=== PATIENT | male | born 1945 | race Caucasian/White ===

== ENCOUNTER 2022-02-14 17:07 | Inpatient (IN) | payer MEDICARE ==
[~2022-02-14] VITALS: Ht 188 cm; Wt 89.4 kg
[2022-02-14 17:34] VITALS: BP 117/69; PULSE 70; TEMP 97.9
[2022-02-14] MEDS ORDERED: ATIVAN 1MG T1 MG/TAB PO (17:53)
[2022-02-14] MEDS ORDERED: NORVASC 10MG10 MG PO (17:56)
[2022-02-14] MEDS ORDERED: TOPROL XL 25MG25 MG PO (17:57)
[2022-02-14] MEDS ORDERED: ARICEPT10 MG PO (17:57)
[2022-02-14] MEDS ORDERED: NAMENDA 10MG TA10 MG PO (17:58)
--- NOTE | 2022-02-14 18:01 | NUR ---
PT TO ROOM 325 PER EMS, REPORT FROM [facility]. PT IS CONFUSED. PLACED CABRERA CATHETER ON ADMISSION. PT WAS INCONTINENT. RIGH HIP FX,
[2022-02-14 20:07] VITALS: BP 120/67; PULSE 63; TEMP 98.5
[2022-02-15] VITALS (12 sets, daily range): BP systolic 97–120; BP diastolic 54–86; PULSE 41–93; TEMP 97.6–99.3
[2022-02-15 05:16] LABS: BASO % 0.5 % (0.0-2.0); EOS # 0.1 K/mm3 (0.0-0.7); GRAN # 4.9 K/mm3 (1.4-6.5); GRAN % 76.1 % (42.2-75.2); HEMOGLOBIN 12.1 g/dl (13.5-18.0); LYMPH # 0.8 K/mm3 (1.2-3.4); LYMPH % 11.7 % (20.0-51.0); MEAN CELL VOLUME 94 fl (80.0-100.0); MEAN CORPUSCULAR HEMOGLOBIN 32 pg (27-31); MEAN CORPUSCULAR HGB CONC 34 g/dl (33.0-37.0); MEAN PLATELET VOLUME 10.2 fl (7.4-10.4); MONO # 0.6 K/mm3 (0.1-0.6); MONO % 9.1 % (1.7-9.3); PLATELET COUNT 145 K/mm3 (130-400); RED BLOOD COUNT 3.82 M/mm3 (4.20-5.60); REDCELL DISTRIBUTION WIDTH-CV 12.6 % (11.5-14.5)
[2022-02-15 05:33] LABS: CALCIUM 8.2 mg/dL (8.4-10.2); CREATININE, serum 1.83 mg/dL (0.72-1.25); MAGNESIUM 1.9 mg/dL (1.6-2.6); POTASSIUM 3.6 mmol/L (3.5-4.5)
--- NOTE | 2022-02-15 05:35 | NUR ---
Patient pulled out his IV at approximately 0155. A new IV was inserted to his left forearm without difficulty. Overall the patient has had an uneventful evening. Patient has been pleasant with staff, no complaints of pain and able to take oral medications withouth difficulty. Patient is NPO as of midnight. Full body assessment and vital signs completed and WNL. No other complaints at this time. Call light within reach.
--- NOTE | 2022-02-15 10:58 | NUR ---
Social Work student called patient's to complete the intake as patient is a poor historian with dementia. Patient's , Mine(ph#[phone]), states that the patient resides at [facility]. Patient's states that he is still seeing Dr. Anitha Lawrence for primary care, and that he receives his medications through [facility]. Patient's states that he utilizes a wheelchair. Patient's also states that he needs assistance with his ADL's. Mine states that he has filled out a DPOA-HC, and it is in their safety lock box at home. SW inquired who his primary agent is, and Mine stated that it was her, who is his legal next of kin. When asked if the patient's is comfortable with the patient discharging back to [facility], she stated, "I have no problems with that." *Discharge plan: [facility]*
--- NOTE | 2022-02-15 11:05 | NUR ---
NOTIFIED AND HARLEY VELASQUEZ THAT PT HAS BEEN MEDICALLY OPTIMIZED FOR SURGERY. PT TO REMAIN NPO AND SURGERY LATER THIS PM.
--- NOTE | 2022-02-15 11:42 | NUR ---
First visit from the data warehouse developer. No needs right now.
--- NOTE | 2022-02-15 12:52 | NUR ---
Social Work student called [facility] to confirm that patient resides at this facility in the SNF unit. Eder Vera confirmed this. SW student faxed uodates to [facility].
--- NOTE | 2022-02-15 13:56 | NUR ---
PT TO SURGERY PER BED WITH PAIGE AT THIS TIME.
[2022-02-16] VITALS (7 sets, daily range): BP systolic 101–116; BP diastolic 53–87; PULSE 51–79; TEMP 97.3–97.9
[2022-02-16 06:29] LABS: HEMOGLOBIN 11.8 g/dl (13.5-18.0)
[2022-02-16 06:38] LABS: HEMATOCRIT 34.5 % (42.0-52.0)
[2022-02-16 06:47] LABS: CREATININE, serum 1.86 mg/dL (0.72-1.25); POTASSIUM 4.1 mmol/L (3.5-4.5)
--- NOTE | 2022-02-16 09:52 | NUR ---
ASSESSMENT COMPLETE. PT A&O X4. SITTING UP IN CHAIR EATING BREAKFAST. CABRERA IN PLACE, SECURED, AND DEPENDENT TO DRAINAGE. DENIES NAUSEA. DRESSING TO RIGHT HIP CD&I. IV IN LEFT FORARM IS PATENT. CALL LIGHT WITHIN REACH. NO FURTHER NEEDS AT THIS TIME.
--- NOTE | 2022-02-16 12:52 | NUR ---
Social Work student faxed updates to [facility].
--- NOTE | 2022-02-16 21:38 | NUR ---
PT IN BED, HAS EYES CLOSED. AWAKENS EASILY TO NAME. IS ALERT TO SELF. TAKES HS MEDS INCLUDING ES TYLENOL FOR RT HIP PAIN. HAS TOM DRSG TO RT HIP, D/I. HAS IVF TO LFA INFUSING WITHOUT PROBLEM, WILL DC AFTER THIS BAG. HAS YET TO VOID SINCE CABRERA REMOVED, BLADDER SCANNED FOR 280CC. WATER GIVEN. BED ALARM ON FOR SAFETY.
--- NOTE | 2022-02-17 02:34 | NUR ---
PT VOIDS 100CC PER URINAL.
[2022-02-17 04:21] VITALS: BP 102/58; PULSE 56; TEMP 98.1
--- NOTE | 2022-02-17 04:30 | NUR ---
VOIDING WELL PER URINAL WITH HELP. INT TO LFA.
[2022-02-17 06:26] LABS: BASO % 0.3 % (0.0-2.0); EOS # 0.1 K/mm3 (0.0-0.7); EOS % 0.7 % (0.0-4.0); GRAN # 5.4 K/mm3 (1.4-6.5); GRAN % 74.1 % (42.2-75.2); HEMOGLOBIN 10.8 g/dl (13.5-18.0); LYMPH % 13.3 % (20.0-51.0); MEAN CELL VOLUME 95 fl (80.0-100.0); MEAN CORPUSCULAR HEMOGLOBIN 32 pg (27-31); MEAN CORPUSCULAR HGB CONC 33 g/dl (33.0-37.0); MEAN PLATELET VOLUME 10.6 fl (7.4-10.4); MONO # 0.8 K/mm3 (0.1-0.6); PLATELET COUNT 139 K/mm3 (130-400); RED BLOOD COUNT 3.41 M/mm3 (4.20-5.60); REDCELL DISTRIBUTION WIDTH-CV 12.6 % (11.5-14.5)
[2022-02-17 06:40] LABS: HEMATOCRIT 32.3 % (42.0-52.0)
[2022-02-17 06:41] LABS: CALCIUM 8.1 mg/dL (8.4-10.2); CREATININE, serum 1.9 mg/dL (0.72-1.25); POTASSIUM 3.7 mmol/L (3.5-4.5)
[2022-02-17 08:00] VITALS: BP 115/60; PULSE 62; TEMP 97.7
--- NOTE | 2022-02-17 08:00 | NUR ---
PATIENT IS ORIENTED TO PERSON BUT OTHERWISE PLEASANTLY CONFUSED AT BASELINE. PATIENT LIVES IN A NH WHERE HE WILL RETURN FOR SKILLED CARE UPON DISCHARGE. VSS. PATIENT DOES NOT USE THE NUMBERIC SCALE WELL TO COMMUNICATE HIS PAIN, SEE CHARTING. GAVE PRN YULISA, ONE TAB WITH AM MEDS BEFORE AM THERAPY. PATIENT 2 ASSIST TO BEDSIDE CHAIR FOR BREAKFAST. RIGHT HIP DRESSING IS CD&I WITH ICE PACK INPLACE. TEDS TO BLE. SCD'S CURRENTLY OFF. POSITIVE PEDAL PULSES TO BLE. PATIENT IS WEAK, UNSTEADY GAIT AND DOESN'T FOLLOW DIRECTIONS WELL. PT/OT CONSULTED. HIGH FALL RISK. CHAIR ALARM INPLACE. CALL LIGHT IN REACH. DNR STATUS. HEAD TO TOE ASSESSMENT COMPLETE. BREAKFAST TRAY AT BEDSIDE. RIGHT AC IV TO INT. NO OTHER NEEDS AT THIS TIME.
[2022-02-17] MEDS ORDERED: ROXICODONE 55 MG/TAB PO ×2 (11:34)
[2022-02-17] MEDS ORDERED: ATIVAN 1MG T1 MG/TAB PO ×2 (11:34)
--- NOTE | 2022-02-17 11:47 | NUR ---
The clinical team is ready to discharge the patient today. SHAUNNA notified Negra at [facility]. Negra states that their administrator pesticide is stating that due to staffing, they are unable to take the patient today and cannot take him until Sunday. SHAUNNA notified the clinical team. SHAUNNA met with the patient and his and updated them. SHAUNNA faxed and emailed updates to Negra.
[2022-02-17 12:13] VITALS: BP 98/58; PULSE 52; TEMP 97.9
[2022-02-17 16:00] VITALS: BP 93/57; PULSE 55; TEMP 97.8
[2022-02-17 20:00] VITALS: BP 106/58; PULSE 62; TEMP 98.1
[2022-02-18] VITALS: BP 146/67; PULSE 82; TEMP 97.2
--- NOTE | 2022-02-18 00:03 | NUR ---
Patient has had an uneventful evening thus far, resting quietly in bed. Patient has been pleasant, full body assessment and vital sign are WNL. Medication administration was given without difficulty. Patient has no complaints of pain at this time; nor does he have any other complaints. Call light within reach.
[2022-02-18 04:00] VITALS: BP 95/50; PULSE 69; TEMP 98.3
[2022-02-18 04:57] LABS: BASO # 0.1 K/mm3 (0.0-0.2); BASO % 0.8 % (0.0-2.0); EOS # 0.1 K/mm3 (0.0-0.7); GRAN # 4.2 K/mm3 (1.4-6.5); GRAN % 69.9 % (42.2-75.2); LYMPH # 0.8 K/mm3 (1.2-3.4); LYMPH % 12.5 % (20.0-51.0); MEAN CELL VOLUME 97 fl (80.0-100.0); MEAN CORPUSCULAR HEMOGLOBIN 32 pg (27-31); MEAN CORPUSCULAR HGB CONC 33 g/dl (33.0-37.0); MEAN PLATELET VOLUME 10.3 fl (7.4-10.4); MONO # 0.9 K/mm3 (0.1-0.6); PLATELET COUNT 136 K/mm3 (130-400); RED BLOOD COUNT 3.45 M/mm3 (4.20-5.60)
[2022-02-18 05:06] LABS: CALCIUM 8.4 mg/dL (8.4-10.2); CREATININE, serum 2.03 mg/dL (0.72-1.25); POTASSIUM 3.8 mmol/L (3.5-4.5)
[2022-02-18 05:07] LABS: HEMATOCRIT 33.4 % (42.0-52.0)
[2022-02-18 08:00] VITALS: BP 120/62; PULSE 59; TEMP 97.7
--- NOTE | 2022-02-18 08:00 | NUR ---
PATIENT IS ORIENTED TO PERSON BUT OTHERWISE PLEASANTLY CONFUSED AT BASELINE. PATIENT LIVES IN A NH WHERE HE WILL RETURN FOR SKILLED CARE UPON DISCHARGE. VSS. PATIENT DOES NOT USE THE NUMBERIC SCALE WELL TO COMMUNICATE HIS PAIN, SEE CHARTING. GAVE PRN YULISA, ONE TAB WITH AM MEDS BEFORE AM THERAPY. PATIENT 1-2 ASSIST TO BEDSIDE CHAIR FOR BREAKFAST. RIGHT HIP DRESSING IS CD&I WITH ICE PACK INPLACE. TEDS TO BLE. SCD'S CURRENTLY OFF. POSITIVE PEDAL PULSES TO BLE. PATIENT IS WEAK BUT GAIT IS IMPROVING. PT/OT CONSULTED. HIGH FALL RISK. CHAIR ALARM INPLACE. CALL LIGHT IN REACH. DNR STATUS. HEAD TO TOE ASSESSMENT COMPLETE. BREAKFAST TRAY AT BEDSIDE. RIGHT AC IV TO INT. NO OTHER NEEDS AT THIS TIME.
[2022-02-18 12:00] VITALS: BP 102/55; PULSE 61; TEMP 97.7
[2022-02-18 16:00] VITALS: BP 102/58; PULSE 59; TEMP 97.6
[2022-02-18 19:30] VITALS: BP 114/76; PULSE 64; TEMP 98.1
--- NOTE | 2022-02-18 21:00 | NUR ---
Pt. sitting up in chair at this time. Pt. is Alert and confused. Shift assessment complete. INT to lt. ac patent. Dressing to rt. hip CDI. Pt. denies pain at this time. Pt. ready to go to bed. Pt. assisted back to bed with 2 assist. Pt. positioned for comfort. Pt. denies further needs, call light within reach, bed alarm on.
[2022-02-19 00:14] VITALS: BP 119/64; PULSE 76; TEMP 97.3
[2022-02-19 04:07] VITALS: BP 134/61; PULSE 79; TEMP 97.7
[2022-02-19 08:00] VITALS: BP 135/60; PULSE 68; TEMP 97.7
[2022-02-19 12:00] VITALS: BP 99/58; PULSE 55; TEMP 97.7
[2022-02-19 16:00] VITALS: BP 103/54; PULSE 51; TEMP 97.6
[2022-02-19 19:45] VITALS: BP 103/62; PULSE 54; TEMP 97.6
--- NOTE | 2022-02-19 20:30 | NUR ---
Pt. sittin up in chair at this time. Pt. is alert and confused. INT to lt. ac patent. Pt. denies pain. Dressing to rt. hip cdi. Pt. assisted with 2 assist, walker and gait belt back to bed from the chair. Pt. did ambulate around the bed. Pt. tolerated well. Pt. repositioned for comfort. Pt. denies pain or other needs, call liht within reach.
[2022-02-20 00:37] VITALS: BP 110/58; PULSE 52; TEMP 97.6
[2022-02-20 04:50] VITALS: BP 120/63; PULSE 62; TEMP 97.4
[2022-02-20] MEDS ORDERED: ASPI325T6 PO (07:19)
[2022-02-20] MEDS ORDERED: DUO-KAPS1 CAP PO (07:20)
[2022-02-20] MEDS ORDERED: VITAMIN C500 MG PO (07:20)
[2022-02-20] MEDS ORDERED: OSCAL 500 TAB500 MG PO (07:20)
[2022-02-20] MEDS ORDERED: TYLENOL 500MG500 MG PO (07:20)
[2022-02-20 07:45] VITALS: BP 119/61; PULSE 58; TEMP 98.3
--- NOTE | 2022-02-20 07:55 | NUR ---
ASSESSMENT COMPLETE. PT. SITTING IN BED, AWAKE. ORIENTED TO SELF AND SLIGHTLY CONFUSED. BREAKFAST ORDERED FOR PT. INT TO LEFT FOREARM. CALL LIGHT IN REACH. NO FURTHER NEEDS AT THIS TIME.
--- NOTE | 2022-02-20 10:38 | NUR ---
The patient is to discharge today, 02/20, back to [facility] for a skilled stay. Transportation was scheduled at 1300, via [facility]. SHAUNNA informed the patient's (Mine) and the RN of the time. SHAUNNA also read the IM form outloud to Mine over the phone. Mine verbalized understanding and of discharge today. She gave SHAUNNA approval to sign the form on her behalf. No additional needs at this time.
[2022-02-20 12:00] VITALS: BP 97/53; PULSE 51
--- NOTE | 2022-02-20 13:13 | NUR ---
PT. DISCHARGED VIA WHEELCHAIR TO [facility]. BELONGINGS WITH PT. CALLED REPORT TO RECEIVING NURSE. ALL QUESTIONS ANSWERED. PT. DISCHARGED.
== END 2022-02-20 13:13 | DRG 522 ==
LOC: SURG 17:07 → MEDICAL 02-15 19:50 → SURG 02-20 13:13
PROVIDERS: Orthopaedic Surgery Sports Medicine; Physician Assistant; Student in an Organized Health Care Education/Training Program; ADMIT Student in an Organized Health Care Education/Training Program
PROC: 0SRR0J9 Replacement of Right Hip Joint, Femoral Surface with Synthetic Substitute, Cemented, Open Approach (ICD-10-PCS; principal; 2022-02-15 14:30)
DX: S72.001A Fracture of unspecified part of neck of right femur, initial encounter for closed fracture (principal); E78.5 Hyperlipidemia, unspecified; F03.90 Unspecified dementia, unspecified severity, without behavioral disturbance, psychotic disturbance, mood disturbance, and anxiety; D64.9 Anemia, unspecified; N18.30 Chronic kidney disease, stage 3 unspecified; I12.9 Hypertensive chronic kidney disease with stage 1 through stage 4 chronic kidney disease, or unspecified chronic kidney disease; Z66 Do not resuscitate; Z20.822 Contact with and (suspected) exposure to COVID-19; W05.0XXA Fall from non-moving wheelchair, initial encounter; Y93.89 Activity, other specified; Y92.129 Unspecified place in nursing home as the place of occurrence of the external cause; Z23 Encounter for immunization
CPT/HCPCS: 99223-AI; 99231-AI; 99232-AI; 99233-AI; 99239; A4314; A9284; C1776; J0690; J1100; J2270; J2370; J2405; J2704; J3010; J7120; J7121